=== PATIENT | female | born 1975 | race Caucasian/White ===

== ENCOUNTER → 2024-01-01 08:51 | Outpatient (REF) | payer OTHER, SELFPAY | LOC: HWRAD 08:51 | PROVIDERS: ATTENDING PHYSICIAN Nurse Practitioner Adult Health | DX: R42 Dizziness and giddiness (principal); M53.82 Other specified dorsopathies, cervical region | CPT/HCPCS: 70491; Q9967 ==

== ENCOUNTER → 2024-01-21 11:26 | Outpatient (REF) | payer OTHER, SELFPAY | LOC: RAD 11:26 | PROVIDERS: ATTENDING PHYSICIAN Nurse Practitioner Adult Health | DX: R10.2 Pelvic and perineal pain (principal) | CPT/HCPCS: 76830; 76856 ==

== ENCOUNTER → 2024-04-28 13:22 | Outpatient (REF) | payer OTHER, SELFPAY | LOC: HWWDC 13:22 | PROVIDERS: ATTENDING PHYSICIAN Nurse Practitioner Adult Health | DX: Z12.31 Encounter for screening mammogram for malignant neoplasm of breast (principal) | CPT/HCPCS: 77063; 77067 ==

== ENCOUNTER → 2024-06-30 11:13 | Outpatient (REF) | payer OTHER, SELFPAY | LOC: HWRAD 11:13 | PROVIDERS: ATTENDING PHYSICIAN Otolaryngology; FAMILY PHYSICIAN Nurse Practitioner Adult Health | DX: Q89.2 Congenital malformations of other endocrine glands (principal) | CPT/HCPCS: 76536 ==

== ENCOUNTER → 2024-07-08 15:23 | Outpatient (REF) | payer OTHER, SELFPAY | LOC: RAD 15:23 | PROVIDERS: ATTENDING PHYSICIAN Otolaryngology; FAMILY PHYSICIAN Nurse Practitioner Adult Health | DX: C06.9 Malignant neoplasm of mouth, unspecified (principal) | CPT/HCPCS: 70491; Q9967 ==

== ENCOUNTER → 2024-07-16 09:15 | Outpatient (REF) | payer OTHER, SELFPAY ==
[2024-07-16 10:39] LABS: HCG, Serum Qualitative Screen Negative
== END ==
LOC: REG 09:15
PROVIDERS: ATTENDING PHYSICIAN Radiology Diagnostic Radiology; OTHER PHYSICIAN Otolaryngology
DX: Z32.00 Encounter for pregnancy test, result unknown (principal); Z01.818 Encounter for other preprocedural examination
CPT/HCPCS: 36415; 84703; 93005

== ENCOUNTER → 2024-07-17 07:51 | Outpatient (REF) | payer OTHER, SELFPAY | LOC: PET 07:51 | PROVIDERS: ATTENDING PHYSICIAN Otolaryngology | DX: C06.9 Malignant neoplasm of mouth, unspecified (principal) | CPT/HCPCS: 78815; A9552 ==

== ENCOUNTER → 2024-10-16 08:05 | Outpatient (REF) | payer OTHER, SELFPAY | LOC: PET 08:05 | PROVIDERS: ATTENDING PHYSICIAN Nurse Practitioner Acute Care | DX: C02.9 Malignant neoplasm of tongue, unspecified (principal) | CPT/HCPCS: 78815; A9552 ==